=== PATIENT | female | born 1950 | race Caucasian/White ===

== ENCOUNTER 2020-10-05 14:32 | Emergency (ER) | payer MEDICARE ==
[~2020-10-05] VITALS: Ht 157.5 cm; Wt 70.3 kg
[2020-10-05] MEDS ORDERED: Bamlanivimab Fact Sheet MISC ONE (14:45)
[2020-10-05] MEDS ORDERED: Bamlanivimab 700 MG in NS 110 ML IVPB SCH (15:00)
--- NOTE | 2020-10-05 15:23 | NUR ---
ED Nurse Note: Pt recommended by PMD to coem get anitbody infusion. She was tested COVID + today. 3 days ago, she started having bodyache, chills. Denies NVD. Her and her huband both set up in isolation room. Pt is alert and orientedx4, amb.
[2020-10-05 15:24] VITALS: BP 128/72
--- NOTE | 2020-10-05 15:28 | Emergency Room Report ---
History of Present Illness General Chief Complaint: Upper Respiratory Illness Source: Patient Present Illness HPI 69-year-old female history of breast cancer in the past presents with cough loss of smell, generalized weakness x3 days no aggravating relieving factors severity is moderate, constant patient was diagnosed with Covid patient presents for monoclonal antibody Allergies: Coded Allergies: No Known Allergies (Unverified , 10/05/20) COVID-19 Screening Contact w/high risk pt: Yes Experienced COVID-19 symptoms?: Yes COVID-19 Testing performed [employer]: Yes COVID-19 Screening: Positive COVID-19 COVID-19 Testing Source: nasal Patient History Past Medical History: see triage record Reviewed Nursing Documentation: PMH: Agreed; PSxH: Agreed Nursing Documentation-PMH Past Medical History: No History, Except For Hx Cancer: Yes - left [place] Review of Systems All Other Systems: negative except mentioned in HPI Physical Exam Vital Signs Date Time Temp Pulse Resp B/P (MAP) Pulse Ox O2 Delivery O2 Flow Rate FiO2 10/05/20 14:57 99.0 73 17 130/76 (94) 96 Room Air 10/05/20 15:24 99 Sp02 EP Interpretation: reviewed, normal General Appearance: well appearing, no apparent distress, alert Head: normocephalic, atraumatic Eyes: bilateral eye PERRL, bilateral eye EOMI ENT: uvula midline, moist mucus membranes Neck: supple, thyroid normal, supple/symm/no masses Respiratory: lungs clear, no respiratory distress, no retraction, no accessory muscle use Cardiovascular #1: normal peripheral pulses, regular rate, rhythm, no edema, no gallop, no murmur Gastrointestinal: non tender, soft, no guarding, no rebound Musculoskeletal: normal inspection Neurologic: alert, oriented x3 Psychiatric: mood/affect normal Skin: no rash, warm/dry Medical Decision Making Diagnostic Impression: Primary Impression: COVID-19 ER Course 69-year-old female given an infusion of monoclonal antibody, patient tolerated procedure well patient met indications Disposition home with return precautions follow-up with PCP isolation precaution s discussed Last Vital Signs Date Time Temp Pulse Resp B/P (MAP) Pulse Ox O2 Delivery O2 Flow Rate FiO2 10/05/20 15:24 99.0 72 18 128/72 99 Room Air 10/05/20 15:24 99 Disposition: HOME, SELF-CARE Condition: Stable Referrals: [facility] Patient Instructions: Upper Respiratory Infection, Adult Additional Instructions: The patient was provided with discharge instructions, notified to follow-up with a primary care doctor and or specialist in the next 24-48 hours, and to return to the ED if they have worsening of their symptoms. Please note that this report is being documented using DRAGON technology. This can lead to erroneous entry secondary to incorrect interpretation by the dictating instrument. Louis Spaulding MD Oct 05, 2020 15:28
--- NOTE | 2020-10-05 16:30 | NUR ---
ED Nurse Note: Infusion ended. No adverse affects.
[2020-10-05 17:44] VITALS: BP 113/65
--- NOTE | 2020-10-05 17:44 | NUR ---
ER DISCHARGE NOTE: Patient is cleared to be discharged per ERMD, pt is aox4, on room air, with stable vital signs. pt was given dc and prescription instructions, pt was able to verbalize understanding, pt id band and iv site removed without complications. pt is able to ambulate with steady gait. pt took all belongings. Pt instructed regarding COVID and given COVID packet.
== END 2020-10-05 17:45 | disposition home or self-care (01) ==
LOC: EMR 15:30
DX: U07.1 COVID-19 (principal); Z23 Encounter for immunization; R05 Cough; R43.9 Unspecified disturbances of smell and taste; R53.1 Weakness; Z85.3 Personal history of malignant neoplasm of breast
CPT/HCPCS: 96365; 99284; Q0239